=== PATIENT | male | born 1990 | race Caucasian/White ===

== ENCOUNTER 2020-08-14 04:15 | Emergency (ER) | payer MEDICAID ==
[~2020-08-14] VITALS: Ht 177.8 cm; Wt 106.6 kg
[2020-08-14 04:19] VITALS: BP 147/94
[2020-08-14] MEDS ORDERED: KETOROLAC 60 MG/2 ML VIAL IM ONE (04:35)
[2020-08-14 04:57] VITALS: BP 147/94
== END 2020-08-14 04:57 | disposition home or self-care (01) ==
LOC: MED 04:15
DX: F15.10 Other stimulant abuse, uncomplicated (principal); M79.10 Myalgia, unspecified site; R10.9 Unspecified abdominal pain; F17.200 Nicotine dependence, unspecified, uncomplicated
CPT/HCPCS: 96372; 99283; J1885